=== PATIENT | female | born 1995 ===

== ENCOUNTER 2018-08-20 13:37 | Emergency (ER) | payer OTHER ==
--- NOTE | 2018-08-20 14:09 | ED PDOC ---
HPI: Female Pain Time Seen by Provider: 08/20/18 13:53 Chief Complaint (Nursing): Female Genitourinary Chief Complaint (Provider): Vaginal bleeding History Per: Patient History/Exam Limitations: no limitations Onset/Duration Of Symptoms: Days (few days) Current Symptoms Are (Timing): Still Present Additional History Per: Patient Additional Complaint(s): Pelvic pain. Dysuria. Increased freq of urination. No back pain, vaginal bleeding, dyspnea, weakness, headaches, chest pain. Is preg 3 months. Past Medical History Reviewed: Nursing Documentation, Vital Signs Vital Signs: Last Vital Signs Temp 97.0 F L 08/20/18 13:45 Pulse 90 08/20/18 13:45 Resp 16 08/20/18 13:45 BP 96/59 L 08/20/18 13:45 Pulse Ox 99 08/20/18 13:45 - Medical History PMH: No Chronic Diseases - Surgical History Surgical History: No Surg Hx - Family History Family History: States: Unknown Family Hx - Living Arrangements Living Arrangements: With Family - Social History Alcohol: None Drugs: Denies - Allergies Allergies/Adverse Reactions: Allergies Allergy/AdvReac Type Severity Reaction Status Date / Time No Known Allergies Allergy Verified 08/20/18 13:45 Review of Systems ROS Statement: Except As Marked, All Systems Reviewed And Found Negative Genitourinary Female: Positive for: Dysuria, Frequency, Pelvic Pain Physical Exam - Reviewed Nursing Documentation Reviewed: Yes Vital Signs Reviewed: Yes - Physical Exam Appears: Positive for: Non-toxic, No Acute Distress Head Exam: Positive for: ATRAUMATIC, NORMAL INSPECTION, NORMOCEPHALIC Skin: Positive for: Normal Color, Warm, DRY Eye Exam: Positive for: EOMI, Normal appearance, PERRL ENT: Positive for: Normal ENT Inspection Neck: Positive for: Normal, Painless ROM Cardiovascular/Chest: Positive for: Regular Rate, Rhythm Respiratory: Positive for: CNT, Normal Breath Sounds Gastrointestinal/Abdominal: Positive for: Soft, Tenderness (suprapubic) Back: Positive for: Normal Inspection. Negative for: L CVA Tenderness, R CVA Tenderness Extremity: Positive for: Normal ROM Neurologic/Psych: Positive for: Alert, Oriented - Laboratory Results Result Diagrams: 08/20/18 15:14 08/20/18 16:14 - ECG O2 Sat by Pulse Oximetry: 99 Pulse Ox Interpretation: Normal - Progress ED Course And Treament: 1824: Stable. AAOx3. Pain free. No bleeding. Pt. to fu with pcp. Disposition - Clinical Impression Clinical Impression: Threatened - Patient ED Disposition Is Patient to be Admitted: No Counseled Patient/Family Regarding: Studies Performed, Diagnosis, Need For Followup - Disposition [facility] - [facility]18 Disposition: Routine/Home Disposition Time: 18:26 Condition: STABLE Additional Instructions: Return if not better in 3 days. Instructions: Threatened Miscarriage
[2018-08-20 15:26] LABS: BASO # 0.1 K/uL (0.0-0.2); BASO % 0.7 % (0.0-2.0); EOS # 0.1 K/uL (0.0-0.7); EOS % 1.3 % (0.0-4.0); HEMOGLOBIN 11.6 g/dL (12.0-16.0); LYMPH # 2.8 K/uL (1.0-4.3); LYMPH % 29.6 % (20.0-40.0); MEAN CELL VOLUME 94.5 fl (81.0-99.0); MEAN CORPUSCULAR HEMOGLOBIN 34.1 pg (27.0-31.0); MEAN CORPUSCULAR HGB CONC 36.1 g/dL (33.0-37.0); MEAN PLATELET VOLUME 8.4 fl (7.2-11.7); MONO # 0.8 K/uL (0.0-0.8); MONO % 8.2 % (0.0-10.0); NEUT # 5.6 K/uL (1.8-7.0); NEUT % 60.2 % (50.0-75.0); NRBC % 0.1 % (0.0-0.0); RBC 3.4 Mil/uL (3.80-5.20); RED CELL DISTRIBUTION WIDTH 13.7 % (11.5-14.5); WHITE BLOOD COUNT 9.3 K/uL (4.8-10.8)
[2018-08-20 15:33] LABS: BLOOD UREA NITROGEN 9 mg/dl (7-17); CALCIUM 9.3 mg/dL (8.4-10.2); GFR NON-AFRICAN AMERICAN > 60
[2018-08-20 19:32] VITALS: BP 102/61; PULSE 84; RESP 18; TEMP 98; O2SAT 100
--- NOTE | 2018-08-21 10:55 | US ---
Date of service: 08/20/2018 PROCEDURE: Obstetrical ultrasound examination HISTORY: preg and pain COMPARISON: None available TECHNIQUE: Transabdominal FINDINGS: There is a twin live intrauterine gestation noted. The twin gestation is monochorionic and diamniotic. There is a grossly normal quantity of amniotic fluid present. A normal fundal posterior placenta is identified. There is no evidence of placenta previa. The cervix is closed and measures 4.1 cm in length. Fetus a: biometry yields a gestational age of 14 weeks 0 days. ARLEEN by ultrasound is 02/18/2019 ARLEEN by LMP is 03/13/2019. There is a discrepancy between ARLEEN by ultrasound and ARLEEN by LMP heart rate is 143 beats per minute. Fetus B: biometry yields a gestational age of 14 weeks 1 day. ARLEEN by ultrasound is 02/17/2029. Please note again that there is discrepancy between gestational age by ultrasound and gestational age by LMP heart rate is 154 beats per minute. IMPRESSION: Twin intrauterine gestation. Monochorionic diamniotic. Gestational age between 14 weeks 0 days and 14 weeks 1 day. This is discrepant from age by LMP. Cervix long and closed. No evidence of placenta previa. Fundal posterior placenta. Normal heart rate for both twin a and twin B. anatomy could not be assessed at this early stage of gestation. Follow-up with full anatomic evaluation is advised at approximately 20 weeks gestation. The preliminary findings for this examination were reported by [facility] Rad[facility] at 8:47 p.m. on 08/20/2018. There is concurrence of this report with the preliminary findings.
== END 2018-08-20 19:32 | disposition home or self-care (01) ==
LOC: H.ER 13:37
DX: O20.0 Threatened abortion (principal); Z3A.20 20 weeks gestation of pregnancy

== ENCOUNTER 2019-01-08 19:38 | Emergency (ER) | payer SELFPAY ==
[2019-01-09 01:09] VITALS: BP 111/60; PULSE 97
== END 2019-01-08 20:55 | disposition home or self-care (01) ==
LOC: H.EROB2 19:38
DX: O76 Abnormality in fetal heart rate and rhythm complicating labor and delivery (principal); Z3A.34 34 weeks gestation of pregnancy

== ENCOUNTER 2019-01-22 18:09 | Inpatient (IN) | payer MEDICAID, SELFPAY ==
[2019-01-22 18:42] VITALS: BMI 33.8
[2019-01-22] MEDS ORDERED: Betamethasone Soluspan 30 mg/5mL Inj Susp IM ONE (18:49)
[2019-01-22] MEDS ORDERED: ceFAZolin 2 GM in Sodium Chloride 0.9% 100 ML IVPB ONE (21:16)
[2019-01-22] MEDS ORDERED: Lactated Ringer's 1,000 ML IV ONE ×3 (21:16→21:22)
[2019-01-22] MEDS ORDERED: OXYTOCIN/0.9 % NS 20 UNIT/1,000 ML BAG IV ONE (21:19)
[2019-01-22] MEDS ORDERED: Oxytocin 30 UNIT in NS 500 ml 30 UNITS/500 ML BAG IV ONE (21:19)
[2019-01-22 22:00] LABS: BASO % 0.3 % (0.0-2.0); EOS # 0.1 K/uL (0.0-0.7); EOS % 0.5 % (0.0-4.0); HEMOGLOBIN 11.7 g/dL (12.0-16.0); LYMPH # 2.1 K/uL (1.0-4.3); LYMPH % 18.4 % (20.0-40.0); MEAN CELL VOLUME 86.2 fl (81.0-99.0); MEAN CORPUSCULAR HEMOGLOBIN 29.1 pg (27.0-31.0); MEAN CORPUSCULAR HGB CONC 33.7 g/dL (33.0-37.0); MEAN PLATELET VOLUME 8.8 fl (7.2-11.7); MONO # 0.6 K/uL (0.0-0.8); MONO % 5.1 % (0.0-10.0); NEUT # 8.7 K/uL (1.8-7.0); NEUT % 75.7 % (50.0-75.0); NRBC % 0.5 % (0.0-0.0); RBC 4.04 Mil/uL (3.80-5.20); RED CELL DISTRIBUTION WIDTH 13.9 % (11.5-14.5); WHITE BLOOD COUNT 11.5 K/uL (4.8-10.8)
[2019-01-22] MEDS ORDERED: DiphenhydrAMINE 50 mg/ml Inj IVP PRN (22:22)
[2019-01-22] MEDS ORDERED: Morphine 4 MG/ML VIAL IV PRN (22:22)
[2019-01-22] MEDS ORDERED: Morphine 5 mg/10 ml preservative-free Inj(Duramorph) ONE (22:35)
[2019-01-22] MEDS ORDERED: ePHEDrine 50 mg/ml Inj ONE (22:54)
[2019-01-22] MEDS ORDERED: Oxycodone/Acetaminophen 5/325 mg Tab PO PRN ×2 (23:45)
[2019-01-23] MEDS ORDERED: Lactated Ringer's 1,000 ML IV ONE (02:04)
[2019-01-23 02:59] VITALS: TEMP 97.9
[2019-01-23] MEDS ORDERED: DiphenhydrAMINE 50 mg/ml Inj IVP PRN (03:21)
[2019-01-23 06:40] LABS: MEAN CELL VOLUME 86.9 fl (81.0-99.0); MEAN CORPUSCULAR HEMOGLOBIN 29.1 pg (27.0-31.0); MEAN CORPUSCULAR HGB CONC 33.6 g/dL (33.0-37.0); RBC 3.42 Mil/uL (3.80-5.20); RED CELL DISTRIBUTION WIDTH 14.2 % (11.5-14.5); WHITE BLOOD COUNT 13.1 K/uL (4.8-10.8)
--- NOTE | 2019-01-23 07:17 | OBPPN ---
Datetime: 01/23/2019 05:47 PP Pain Prov: Within normal limits PP Nausea Prov: Denies PP Flatus Prov: No PP BM Prov: No PP Heart Prov: Normal PP Lungs Prov: Normal PP Abdomen/Uterus Prov: Normal PP Lochia Prov: Normal PP Extremities Prov: Normal PP Impression Prov: Normal progression PP Plan Prov: Continue present management PP Progress Note Prov: [facility]-[id number] 23 y/o POD1 s/p for twin delivery was seen and examined this AM. Patient asleep wit h pain tolerable with pain meds. Lochia like menses. B _ B feeding. -flatus, -BM. Denies f/c/n/v/cp/s ob or lightheadedness. PE: Gen: sleeping in bed breathing comfortably Cardio: s1s2, borderline tachy Lungs: cta b/l no wheeze or rhonchi Abd: dressing- c/d/i; appropriate tendernes, fundus @ umbilicus, no rigidity, no guarding Ext: calves nontender A/P: 23 y/o , clinically stable, POD1 s/p for twin delivery -Continue to encourage _ ambulation -Continue pain med regimen -Anticipated DC 01/25/19 Case discussed with attending -Yessi Lopez, PGY-1 OB Hospitalist Addendum: Pt seen and examined by me. Agree w/ above. POD 1 s/p cesrean section w / twins, requesting water, breast and bottle feeding. Advance diet as tolerated and encourage ambula tion today. (ES) IP PP Procedures: None Vital Signs Provider PP: Reviewed; Within Normal Limits
--- NOTE | 2019-01-23 07:53 | OBADHP ---
Datetime: 01/22/2019 18:47 IP Chief Complaint Other: Betamethasone shot Admit Comment, IP Provider: Valeria:[id number] 23 y/o at EGA of 36.1 week by 14 wk U/S and LMP of 06/01/18, ARLEEN 02/18/19. Patient has a twin g estation and was sent here by Dr. Valenzuela today for a Betamethasone shot, questionable C section today or in the AM pending Dr. Floyd rec. Denies vaginal bleeding, LOF or or contractions. Reports g ood movement. Denies headaches, blurry vision, chest pain, SOB, dizziness, nausea, vomiting, d iarrhea, constipation or dysuria. Provider: Dr. Valenzuela @ [facility], Dr castillo PMHx: Denies Meds: PNV-last took 1 month ago FMHx: DM- grandmother Allergies: Seasonal SurgHx: None SOCHx: Former smoker 4-5 years 1-2 PPD, Previous THC use prior to . Denies Alcohol OBGYN: No complications with Labs: HIV neg, GC/CL neg, Rubella Immune, RPR neg, Quant negative, Flu vax 09-19-18, TDAP 12-09-18 Assessment 23 y/o at EGA of 36.1 week by 14 wk U/S and LMP of 06/01/18, ARLEEN 02/18/19. Patient has a twin g estation and was sent here by Dr. Valenzuela today for a Betamethasone shot. Plan: -Observe in OB ED -Monitor FHR tracing 140's, moderate variability, 15x15 accelerations, no decels -Betamethasone shot Case reviewed and discussed with attending Arabella Salomon PGY1 Extremities - PN: Normal Abdomen - PN: Normal Lungs - PN: Normal Heart - PN: Normal HEENT - PN: Normal General - PN: Normal FHR - Baseline A Provider: 140's Comments, ACOG Physical Exam: GEN: Lying in bed NAD HEENT: NCAT CARD: RRR + S1S2 RESP: CTA, no wheezing, rales or rhonchi GI: Gravid, + BS, no tenderness to palpation EXT: No edema, no calf tenderness FHR 140's, moderate variability, no decelerations IP Hx Assessment: The History has been Reviewed and is Current Vital Signs Provider: Reviewed; Within Normal Limits IP Chief Complaint: Other NICHD Variability Prov Fetus A: Moderate 6-25bpm NICHD Accel Fetus A IP Provider: [id number] FHR Category Provider Fetus A: Category I NICHD Decel Fetus A IP Provider: None EGA AdmitDate IP: 36.1 IP Adm Impression: , intrauterine IP Admit Plan: Observation/Evaluation Datetime: 01/08/2019 19:44 Pelvic Type - PN: Adequate Back - PN: Normal Breast - PN: Not Done Thyroid - PN: Normal Neurologic - PN: Normal Genitourinary Exam: Normal DTRs - PN: Normal
--- NOTE | 2019-01-23 07:53 | OBDS ---
DELIVERY PERSONNEL Delivery Doctor: Payam Carlson MD Scrub Nurse: Kelsi Bee Pantomimist: Cuong Desir RN Anesthesiologist: Resident: MATERNAL INFORMATION Delivery Anesthesia: Spinal Medications in Delivery: PITOCIN 30UNITS IN 500 NS Estimated Blood Loss (ml): 800 Placenta Cultured: No Maternal Complications: None Provider Comments: Primary low flap transverse section Via Pfannenstiel incision. Twin ges tation. Breech presentation/transverse presentation. Normal uterus, normal tubes and ovaries bilate rally Estimated blood loss 800 cc Fluids 3200 cc lactated Ringer's Urine output 100 cc No complications Refer to dictation LABOR SUMMARY EDC: 02/18/2019 00:00 No. Babies in Womb: 2 Attempted: No Labor Anesthesia: None LABOR INFORMATION Reason for Induction: Not Applicable Oxytocin: N/A Group B Beta Strep: Done, Result Unknown Antibiotics # of Doses: 0 Steroids Given: Partial Course; < 24 Hours before Delivery Reason Steroids Not Administered: Imminent Delivery MEMBRANES Membranes Rupture Method: Artificial Rupture of Membranes: 01/22/2019 23:02 Length of Rupture (hrs): 0.00 Amniotic Fluid Color: Clear Amniotic Fluid Amount: Moderate Amniotic Fluid Odor: Normal STAGES OF LABOR Stage 3 hrs: 0 Stage 3 min: 3 CSECTION DELIVERY Primary Indication: Breech Presentation Secondary Indication: Multiple Gestation CSection Urgency: Non Elective CSection Incidence: Primary Labor: No Labor Elective: Nonelective CSection Incision: Lower Uterine Transverse BABY A INFORMATION Delivery Date/Time: 01/22/2019 23:02 Method of Delivery: Born in Route : No : N/A Forceps: N/A Vacuum Extraction: N/A Shoulder Dystocia : No SHOULDER DYSTOCIA BABY A Delivery Date/Time: 01/22/2019 23:02 PRESENTATION/POSITION BABY A Presentation: Breech Cephalic Presentation: N/A Breech Presentation: Marcelo PLACENTA INFORMATION BABY A Placenta Delivery Time : 01/22/2019 23:05 Placenta Method of Delivery: Manual Removal Placenta Status: Delivered SCORES BABY A Heart Rate 1 min: >100 bpm Resp Effort 1 min: Good Cry Reflex Irritability 1 min: Cough or Sneeze or Pulls Away Muscle Tone 1 min: Active Motion Color 1 min: Body [place], Extremities Blue Resuscitation Effort 1 min: Tactile Stimulation SCORE 1 MIN: 9 Heart Rate 5 min: >100 bpm Resp Effort 5 min: Good Cry Reflex Irritability 5 min: Cough or Sneeze or Pulls Away Muscle Tone 5 min: Active Motion Color 5 min: Body [place], Extremities Blue Resuscitation Effort 5 min: N/A SCORE 5 MIN: 9 INFORMATION BABY A Gestational Age at Delivery: 36.1 Gestational Status: Outcome : Liveborn Infant Condition : Stable Sex: Female IDENTIFICATION/MEDS BABY A ID Band Number: [id number] ID Band Location: Left Leg; Left Arm WEIGHT/LENGTH BABY A Infant Birthweight (gms): 2355 Infant Weight (lb): 5 Weight (oz): 3 CORD INFORMATION BABY A No. Cord Vessels: 3 Nuchal Cord : N/A Suction: Mouth; Nose BABY B INFORMATION Infant Delivery Date/Time: 01/22/2019 23:04 Method of Delivery : Born in Route : No : N/A Forceps : N/A Vacuum Extraction: N/A Shoulder Dystocia : No SHOULDER DYSTOCIA BABY B Infant Delivery Date/Time: 01/22/2019 23:04 PRESENTATION/POSITION BABY B Presentation : Compound Cephalic Position : N/A Breech Position: N/A ROM/PLACENTA INFO BABY B Rupture of Membranes: 01/22/2019 23:02 Length of Rupture (hrs): 0.03 Placenta Delivery Time : 01/22/2019 23:05 Placenta Method of Delivery: Manual Removal Placental Status : Delivered SCORES BABY B Heart Rate 1 min: >100 bpm Resp Effort 1 min: Good Cry Reflex Irritability 1 min: Cough or Sneeze or Pulls Away Muscle Tone 1 min: Active Motion Color 1 min: Body [place], Extremities Blue Resuscitation Effort 1 min: Tactile Stimulation SCORE 1 MIN: 9 Heart Rate 5 min: >100 bpm Resp Effort 5 min: Good Cry Reflex Irritability 5 min: Cough or Sneeze or Pulls Away Muscle Tone 5 min: Active Motion Color 5 min: Body [place], Extremities Blue Resuscitation Effort 5 min: N/A SCORE 5 MIN: 9 INFORMATION BABY B Gestational Age at Delivery: 36.1 Gestational Status : Infant Outcome : Liveborn Infant Condition : Stable Infant Sex : Female IDENTIFICATION/MEDS BABY B ID Band Number : [id number] ID Band Location : Left Leg; Left Arm Sensor Applied: [id number] WEIGHT/LENGTH BABY B Infant Birthweight (gms): 2155 Infant Weight (lb) : 4 Infant Weight (oz): 12 CORD INFORMATION BABY B No. Cord Vessels : 3 Nuchal Cord : N/A Infant Suction : Mouth; Nose
[2019-01-23] MEDS: Multivitamin With Minerals Tab PO SCH (08:26)
[2019-01-23] MEDS ORDERED: Multivitamin With Minerals Tab PO SCH (09:00)
[2019-01-23] MEDS ORDERED: Pneumococcal 23-Valent Vaccine IM ONE (09:00)
[2019-01-23] MEDS: Oxycodone/Acetaminophen 5/325 mg Tab PO PRN (21:00)
[2019-01-23] MEDS: Simethicone 80 mg Chewtab PO PRN (22:39)
--- NOTE | 2019-01-24 00:08 | OP ---
PROCEDURE DATE: 01/22/2019 PREOPERATIVE DIAGNOSES: Twin gestation, breech presentation of twin A, intrauterine growth restriction, 36 weeks' gestational age, monoamniotic dichorionic twins. POSTOPERATIVE DIAGNOSES: Twin gestation, breech presentation of twin A, intrauterine growth restriction, 36 weeks' gestational age, monoamniotic dichorionic twins. OPERATION PERFORMED: Primary low flap transverse section via Pfannenstiel incision. OPERATIVE FINDINGS: Twin gestation. Twin A: Front breech presentation, Apgars of 9 and 9. Twin B: Transverse presentation, Apgars of 9 and 9. Normal uterus, normal tubes and ovaries bilaterally. ANESTHESIOLOGIST: Dr. Juarez. TYPE OF ANESTHESIA: Spinal. SURGEON: Jose Carlson MD YARN REWINDER: Dr. Linda Pierce. COMPLICATIONS: None. DESCRIPTION OF PROCEDURE: The patient was taken to the operating room where spinal anesthesia was found to be adequate. The patient was prepped and draped in a normal sterile fashion in the dorsal supine position with a leftward tilt. A Pfannenstiel skin incision was made with the scalpel. This was carried down through to the underlying layer of fascia with the scalpel. A midline defect was made in the fascial layer with the scalpel. The fascial incision was then extended bilaterally with curved Weller scissors. The fascial layer was from the underlying rectus muscles both bluntly and sharply with curved Weller scissors. The rectus muscles were at the midline. The peritoneum was then identified, tented up with Anastasiya clamps x2, and entered sharply with Metzenbaum scissors. This peritoneal incision was then extended superiorly and inferiorly with good visualization of the urinary bladder. Bladder blade was inserted into the abdomen. The vesicouterine peritoneum was then identified, tented up with Anastasiya clamps x2, and entered sharply with Metzenbaum scissors. This peritoneal incision was then extended bilaterally with Metzenbaum scissors. The bladder flap was created digitally. The Agenda retractor was placed over the urinary bladder. The uterus was incised with the scalpel. The uterine incision was extended bilaterally bluntly. The breech of infant A was delivered without complication. Lower extremities and upper extremities were flexed and delivered without complication. The head was flexed and delivered without complication. The cord was clamped and cut. The was handed off to the awaiting pediatricians. B was found in transverse presentation. Infant B was internally rotated to vertex presentation. Infant B's head was delivered atraumatically. Nose and mouth were suctioned with bulb suction. The remainder of the was delivered without complication. The cord was clamped and cut. The infant was handed off to the awaiting pediatricians. Cord blood was collected. The placenta was removed manually. The uterus was cleared of all clots and debris. The uterine incision was repaired with 0 Vicryl in a running, locked fashion. Re-inspection of the uterine incision proved excellent hemostasis. The abdomen and pelvis were irrigated with copious amounts of warm normal saline. Re-inspection of the uterine incision proved excellent hemostasis. All instruments were removed from the patient. The peritoneal layer was closed with a running stitch of 2-0 chromic. The rectus muscles were reapproximated at the midline with running stitch of 2-0 chromic. The fascial layer was closed with a running stitch of 0 Vicryl. Subcutaneous tissue was closed with a running stitch of 3-0 plain. The skin was closed with a subcutaneous stitch of 3-0 Vicryl. The patient tolerated the procedure well. All sponge, lap count, and needle counts were correct x2. The patient was given 2 g of Ancef just prior to the beginning of the procedure. There were no complications. The patient was taken to the recovery room in awake and stable condition. Jose Carlson MD
[2019-01-24] MEDS: Oxycodone/Acetaminophen 5/325 mg Tab PO PRN ×4 (02:36→21:22)
[2019-01-24] MEDS: Multivitamin With Minerals Tab PO SCH (08:56)
[2019-01-24] MEDS ORDERED: Pneumococcal 23-Valent Vaccine IM ONE (09:00)
--- NOTE | 2019-01-24 10:54 | OBPPN ---
Datetime: 01/24/2019 05:46 PP Pain Prov: Within normal limits PP Nausea Prov: Denies PP Flatus Prov: Yes PP BM Prov: No PP Heart Prov: Normal PP Lungs Prov: Normal PP Abdomen/Uterus Prov: Normal PP Lochia Prov: Normal PP Extremities Prov: Normal PP Impression Prov: Normal progression PP Plan Prov: Continue present management PP Progress Note Prov: [facility] interpretation services-[id number] 23 y/o POD2 s/p for twin delivery was examined this AM. Patient was asleep _ compl aining of pain. Last med was given at 230am. Lochia like menses. B _ B feeding. -flatus, -BM. Denies f/c/n/v/cp/sob or lightheadedness. PE: Gen: sleeping in bed Cardio: s1s2, borderline tachycardia Lungs: cta b/l Abd: appropriate tendernes, fundus @ umbilicus, no rigidity, no guarding Ext: calves nontender A/P: 23 y/o , clinically stable, POD2 s/p for twin delivery -Continue to encourage _ ambulation -Continue pain med regimen -Anticipated DC 01/25/19 Case discussed with attending -Yessi Lopez, PGY-[address] Jimenez: I have evaluated the patient independently and I agree with the above IP PP Procedures: None Vital Signs Provider PP: Reviewed; Within Normal Limits
[2019-01-24] MEDS: Simethicone 80 mg Chewtab PO PRN (21:22)
[2019-01-25] MEDS: Oxycodone/Acetaminophen 5/325 mg Tab PO PRN (05:26)
--- NOTE | 2019-01-25 07:46 | OBPPN ---
Datetime: 01/25/2019 07:33 PP Pain Prov: Within normal limits PP Nausea Prov: Denies PP Flatus Prov: Yes PP BM Prov: No PP Breasts Prov: Not Done PP Heart Prov: Normal PP Lungs Prov: Normal PP Abdomen/Uterus Prov: Normal PP Lochia Prov: Normal PP Vulva/Perineum Prov: Normal PP CVA Tenderness Prov: Normal PP Extremities Prov: Normal PP C/S Incision Prov: Normal PP Progress Prov: Normal PP Impression Prov: Normal progression PP Plan Prov: Continue present management; Discharge PP Progress Note Prov: 23 y/o POD2 s/p for twin delivery was examined this AM. Patien t was ambulating _ states she feels well. Lochia like menses. B _ B feeding. +flatus, -BM. Denies f/c /n/v/cp/sob or lightheadedness. PE: Gen: sleeping in bed Cardio: s1s2, borderline tachycardia Lungs: cta b/l Abd: appropriate tenderness, fundus @ umbilicus, no rigidity, no guarding Ext: calves nontender H/H: aCBC: 11.7/34.8 pCBC: 10.0/27.9 A/P: 23 y/o , clinically stable, POD2 s/p for twin delivery -Continue to encourage _ ambulation -Continue pain med regimen -DC today 01/25/19 Cristina Vergara, PGY-1 OB Hospitalist Addendum: Pt seen and examined by me. Agree w/ above. POD 3 s/p primary c/s twins at 36+ weeks, breast pumping, doing well. Discharge home today. (ES) IP PP Procedures: None Vital Signs Provider PP: Reviewed; Within Normal Limits
[2019-01-25] MEDS: Multivitamin With Minerals Tab PO SCH (08:12)
[2019-01-25 19:38] VITALS: BP 132/72; PULSE 75; RESP 20; O2SAT 99
== END 2019-01-25 14:45 | disposition home or self-care (01) | DRG 540 ==
LOC: H.EROB2 18:09 → H.L&D 21:33 → H.OB/GYN 01-23 02:05
PROVIDERS: ADMIT Obstetrics & Gynecology; ATTEND Obstetrics & Gynecology
PROC: 10D00Z1 Extraction of Products of Conception, Low, Open Approach (ICD-10-PCS; principal; 2019-01-22)
PROC: 4A1HXCZ Monitoring of Products of Conception, Cardiac Rate, External Approach (ICD-10-PCS; 2019-01-22)
DX: O30.043 Twin pregnancy, dichorionic/diamniotic, third trimester (principal); Z37.2 Twins, both liveborn; O32.1XX1 Maternal care for breech presentation, fetus 1; Z87.891 Personal history of nicotine dependence; O32.2XX2 Maternal care for transverse and oblique lie, fetus 2; Z37.4 Twins, both stillborn; O66.0 Obstructed labor due to shoulder dystocia